=== PATIENT | female | born 1940 | race Caucasian/White ===

== ENCOUNTER 2016-05-19 13:35 | Emergency (ER) | payer OTHER ==
[~2016-05-19] VITALS: Ht 162.6 cm; Wt 60.3 kg
[2016-05-19 14:32] VITALS: BP 134/65
== END 2016-05-19 14:51 | disposition home or self-care (01) ==
LOC: ER 13:35
DX: E03.9 Hypothyroidism, unspecified (principal); Z76.0 Encounter for issue of repeat prescription

== ENCOUNTER 2017-08-11 13:29 | Emergency (ER) | payer OTHER ==
[~2017-08-11] VITALS: Ht 162.6 cm; Wt 72.6 kg
[2017-08-11 13:51] VITALS: BP 122/80
== END 2017-08-11 16:23 | disposition home or self-care (01) ==
LOC: EDBD 13:29 → ER 13:29
DX: S91.301A Unspecified open wound, right foot, initial encounter (principal); Z88.0 Allergy status to penicillin; X58.XXXA Exposure to other specified factors, initial encounter; Y93.89 Activity, other specified; Y99.8 Other external cause status; Y92.89 Other specified places as the place of occurrence of the external cause
CPT/HCPCS: 93005

== ENCOUNTER 2019-11-20 18:29 | Inpatient (IN) | payer OTHER ==
[~2019-11-20] VITALS: Ht 162.6 cm; Wt 71.2 kg
[~2019-11-20 18:29] MED LIST: LEVO88TA4 PO
[2019-11-20 20:08] LABS: Basophils # (auto) 0.1 10 ^3/uL (0-0.2); Basophils % (auto) 0.3 % (0.0-2.0); Eosinophils # (auto) 0 10 ^3/uL (0-0.8); Eosinophils % (auto) 0.1 % (0.0-7.0); Hematocrit 50.4 % (36.0-46.0); Hemoglobin 16.1 g/dL (12.2-16.2); Lymphocytes # (auto) 0.6 10 ^3/uL (0.4-5.4); Lymphocytes % (auto) 3.8 % (10.0-50.0); Mean Corpuscular Hemoglobin 27.3 pg (28.0-32.0); Mean Corpuscular Hgb Conc. 31.9 g/dL (32.0-36.0); Mean Corpuscular Volume 85.4 fL (80.0-100.0); Monocytes # (auto) 1.7 10 ^3/uL (0-1.3); Monocytes % (auto) 10.6 % (0.0-12.0); Neutrophils # (auto) 13.6 10 ^3/uL (1.6-8.6); Neutrophils % (auto) 85.2 % (37.0-80.0); Platelet Count (auto) 281 10^3/uL (140-450); Red Cell Distribution Width 16.1 % (11.8-14.3)
[2019-11-20 20:26] LABS: Albumin 3.5 g/dL (3.4-5.0); Anion Gap 8 (5-15); Blood Urea Nitrogen 37 mg/dL (7-18); Calcium 9.4 mg/dL (8.5-10.1); Carbon Dioxide 23 mmol/L (21-32); Chloride 112 mmol/L (98-107); Glucose 139 mg/dL (74-106); Potassium 3.8 mmol/L (3.5-5.1); Sodium 143 mmol/L (136-145)
[2019-11-20 20:31] LABS: Alanine Aminotransferase 27 U/L (13-56); Aspartate Aminotransferase 53 U/L (15-37); BUN/Creatinine Ratio 26.1; GFR African American 46 mL/min; GFR Non-African American 38 mL/min
[2019-11-20 20:45] LABS: Alkaline Phosphatase 103 U/L (45-117); Bilirubin, Total 0.5 mg/dL (0.2-1.0)
[2019-11-21] MEDS ORDERED: SODIUM CHLORIDE 0.9% 1,000 ML IV ONE (00:05)
[2019-11-21] MEDS ORDERED: SODIUM CHLORIDE 0.9% 500 ML IVB ONE (00:05)
[2019-11-21 01:18] LABS: INR 1.06 (0.9-1.15); Partial Thromboplastin Time 26.2 sec (23.0-31.2)
[2019-11-21] MEDS ORDERED: SODIUM CHLORIDE 0.9% 500 ML IV ONE (02:00)
[2019-11-21] MEDS: SODIUM CHLORIDE 0.9% 1,000 ML IV SCH ×4 (03:05→18:05)
[2019-11-21] MEDS ORDERED: HYDROcodone-ACET 5/325MG TAB PO PRN (03:15)
[2019-11-21] MEDS ORDERED: DEXTROSE (50%) 50ML SYRG IV PRN (03:15)
[2019-11-21] MEDS ORDERED: DOCUSATE SOD 100 MG CAP PO PRN (03:15)
[2019-11-21] MEDS ORDERED: ONDANSETRON HCL 4 MG/2 ML VIAL IV PRN (03:15)
[2019-11-21] MEDS ORDERED: ACETAMINOPHEN 325 MG TAB PO PRN (03:15)
[2019-11-21] MEDS: ACCU-CHEK COMFORT CURVE STRIP VI SCH ×4 (03:52→20:15)
[2019-11-21] MEDS ORDERED: dilTIAZem 25 MG/5 ML VIAL IV ONE ×2 (04:08→04:15)
[2019-11-21 04:14] LABS: Urine Bacteria MANY /hpf (None Seen); Urine Blood 2+ /uL (Negative); Urine Hyaline Cast MANY /lpf (0 - 2); Urine Mucus FEW (None Seen); Urine Specific Gravity 1.028 (1.001-1.035); Urine WBC 153 /hpf (0 - 5)
[2019-11-21] MEDS: InsuLIN REG 1unit/0.01ml Soln (100units/ml) SC SCH ×5 (04:17→20:15)
[2019-11-21 05:52] LABS: Basophils # (auto) 0 10 ^3/uL (0-0.2); Basophils % (auto) 0.3 % (0.0-2.0); Eosinophils # (auto) 0.5 10 ^3/uL (0-0.8); Eosinophils % (auto) 2.8 % (0.0-7.0); Hematocrit 40.4 % (36.0-46.0); Hemoglobin 13.1 g/dL (12.2-16.2); Lymphocytes # (auto) 1.4 10 ^3/uL (0.4-5.4); Lymphocytes % (auto) 8.3 % (10.0-50.0); Mean Corpuscular Hemoglobin 27.3 pg (28.0-32.0); Mean Corpuscular Hgb Conc. 32.4 g/dL (32.0-36.0); Mean Corpuscular Volume 84.5 fL (80.0-100.0); Monocytes % (auto) 11.6 % (0.0-12.0); Neutrophils # (auto) 13.1 10 ^3/uL (1.6-8.6); Platelet Count (auto) 240 10^3/uL (140-450); Red Blood Cells 4.78 10^6/uL (4.0-5.20); Red Cell Distribution Width 15.8 % (11.8-14.3)
[2019-11-21 06:16] LABS: Calcium 8.3 mg/dL (8.5-10.1); Potassium 3.3 mmol/L (3.5-5.1)
[2019-11-21] MEDS: cefTRIAXone 1GM/50ML D5W 50 ML IV SCH (11:27)
--- NOTE | 2019-11-21 13:07 | NUR ---
Medsurg admit from [facility] admitted to Telemetry unit after SBAR received. Patient oriented to NEAL HUGO RN primary RN, unit, room, bed, and unit policies regarding patient care and visiting hours. Patient is on room air, respirations even and unlabored. Patient denies pain at this time. Patient has Nathan catheter in place, patent and draining. Reviewed plan of care with patient, patient verbalized understanding. Bed in low and locked position, call light within reach. Will continue to monitor Q1 hour and PRN.
--- NOTE | 2019-11-21 16:53 | NUR ---
Attempted PT eval but pt declined stating she is too tired and would like to try in the morning. Will attempt again.
--- NOTE | 2019-11-21 19:05 | NUR ---
Closing Note Report given to lieutenant shift supervisor RN. No signs or symptoms of distress noted at this time.
--- NOTE | 2019-11-21 19:20 | NUR ---
RECEIVED PATIENT FROM DAY SHIFT RN. PATIENT RESTING IN BED. NO S/S OF DISTRESS NOTED. DENIED PAIN FOR NOW. NOWAK CATH IN PLACE DRAINING TO GRAVITY. REORIENTED PATIENT TO CURRENT SITUATION. REINFORCE NEEDED. POC INSTRUCTED AND ENCOURAGED PATIENT TO CALL FOR [employer] WORKER IF NEEDED. BED IN LOWEST POSITION WITH SIDE RAILS UP X 2. CALL ALDANA WITHIN REACH. ALARM ON. CONTINUE TO MONITOR FOR CHANGES Q1H AND PRN.
--- NOTE | 2019-11-21 20:20 | NUR ---
ACCU-CHECK, BS 83. NO COVERAGE. CONTINUE TO MONITOR.
--- NOTE | 2019-11-21 20:35 | NUR ---
REPOSITIONED PATIENT, INSTRUCTED PATIENT ON IMPORTANCE OF TURNING IN THE BED SINCE PATIENT A LITTLE SCARY TO TURNING HER. CONTINUE TO MONITOR.
--- NOTE | 2019-11-21 22:10 | NUR ---
REPOSITIONED PATIENT, PATIENT TOLERATED WELL. CONTINUE TO MONITOR.
--- NOTE | 2019-11-21 22:39 | NUR ---
CALLED BACK TO PATIENT'S SON COLUMBA ALVARADO, P[employer] VERIFIED. UPDATED ON PATIENT'S CURRENT SITUATION. COLUMBA REQUESTED MD TO CALL HIM BACK TO UPDATE IN THE MORNING AND REQUESTED TO HAVE NEUROLOGY CONSULT AND COVID TEST. WILL PASS IT TO DAY SHIFT RN. TO DAY SHIFT MD. CONTINUE TO MONITOR.
[2019-11-22] MEDS: ACCU-CHEK COMFORT CURVE STRIP VI SCH ×3 (00:15→08:27)
[2019-11-22] MEDS: SODIUM CHLORIDE 0.9% 1,000 ML IV SCH ×4 (00:15→14:05)
--- NOTE | 2019-11-22 00:16 | NUR ---
REPOSITIONED PATIENT. PATIENT TOLERATED WELL. ACCU-CHECK, BS 88. NO COVERAGE. CONTINUE TO MONITOR.
--- NOTE | 2019-11-22 02:15 | NUR ---
REPOSITIONED PATIENT, PATIENT TOLERATED WELL. CONTINUE TO MONITOR.
[2019-11-22] MEDS: InsuLIN REG 1unit/0.01ml Soln (100units/ml) SC SCH ×3 (04:00→08:00)
--- NOTE | 2019-11-22 04:06 | NUR ---
REPOSITIONED PATIENT. PATIENT TOLERATED WELL. ACCU-CHECK, BS 88. NO COVERAGE. CONTINUE TO MONITOR.
[2019-11-22 05:00] VITALS: BP 107/55
--- NOTE | 2019-11-22 06:33 | NUR ---
REPOSITIONED PATIENT, PATIENT TOLERATED WELL. CONTINUE TO MONITOR.
[2019-11-22 08:00] VITALS: BP 104/50
[2019-11-22 09:00] VITALS: BP 104/50
[2019-11-22] MEDS: cefTRIAXone 1GM/50ML D5W 50 ML IV SCH (09:27)
--- NOTE | 2019-11-22 11:20 | NUR ---
Dr Bernabe Carson bedside with patient discussing plan of care. Orders received and carried out.
[2019-11-22 11:52] LABS: Basophils # (auto) 0.1 10 ^3/uL (0-0.2); Basophils % (auto) 0.7 % (0.0-2.0); Eosinophils # (auto) 0.5 10 ^3/uL (0-0.8); Eosinophils % (auto) 4.7 % (0.0-7.0); Hematocrit 37.9 % (36.0-46.0); Hemoglobin 12.2 g/dL (12.2-16.2); Lymphocytes # (auto) 0.6 10 ^3/uL (0.4-5.4); Lymphocytes % (auto) 6.5 % (10.0-50.0); Mean Corpuscular Hemoglobin 27.4 pg (28.0-32.0); Mean Corpuscular Hgb Conc. 32.3 g/dL (32.0-36.0); Mean Corpuscular Volume 84.9 fL (80.0-100.0); Monocytes # (auto) 0.9 10 ^3/uL (0-1.3); Neutrophils # (auto) 7.9 10 ^3/uL (1.6-8.6); Neutrophils % (auto) 79.1 % (37.0-80.0); Platelet Count (auto) 183 10^3/uL (140-450); Red Blood Cells 4.47 10^6/uL (4.0-5.20); Red Cell Distribution Width 15.6 % (11.8-14.3)
[2019-11-22 12:09] LABS: Calcium 7.5 mg/dL (8.5-10.1); Magnesium 2.2 mg/dL (1.6-2.6); Potassium 3.4 mmol/L (3.5-5.1)
[2019-11-22] MEDS ORDERED: CEPH-37 PO (13:25)
[2019-11-22 15:00] VITALS: BP 106/38
--- NOTE | 2019-11-22 16:00 | NUR ---
[facility] Merle with [facility] called. Patients caregiver, Elizabeth, will be here at 1700 to pickup patient. I informed Merle that the patient is weak, and may need transportation arranged. Per Merle, Elizabeth said she is able to pickup and transport patient in the wheelchair.
--- NOTE | 2019-11-22 17:11 | NUR ---
Assessment Patient is an 79-year-old female. Assessment was completed with patient son Juan ). Per Juan prior to admission patient lived home alone. Per Juan patient caregiver is Mariel ) who helps patient 7 days per week. Per Juan patient will return home to her prior living arrangements post discharge and Mariel will transport patient home. Advised Juan there is a social service consult for hospice vs home health. Juan requested hospice for patient. Information and choice letter was given to Juan. Patient requested [facility]. Informed Juan clinical information will be faxed to [facility]. Informed Juan he has a right to participate in all discharge planning. Juan verbalized understanding discharge plan. Faxed clinical information to [facility]. Per Merle with [facility] patient has been accepted and they will start service upon discharge day. LEVI Tovar was informed. Addendum: 11/22/19 at 1713 by SURENDRA KOHLER Amended: Links added.
--- NOTE | 2019-11-22 17:31 | NUR ---
Discharge instructions given as ordered. Patient care will be followed by [facility]. All questions and concerns addressed. Patient verbalized understanding. Medication reconciliation form completed and copy given to patient. No home medications held in Pharmacy, and no needed vaccines given, patient declined. IV removed with catheter intact and pressure dressing applied, noble catheter remained in place per Merle, from [facility]. Hospice will determine if they want the catheter removed once patient is home. Patient taken to vehicle via wheelchair with all personal belongings, accompanied by 2 staff members. Patient caregiver, Elizabteh, transported patient home. No distress noted at time of departure.
== END 2019-11-22 17:30 | disposition hospice, home (50) | DRG 565 ==
LOC: ER 18:29 → EDBD 18:29 → OVERFLOW 18:30 → WEST WING 11-21 13:10
PROVIDERS: ADMIT Hospitalist; ATTEND Internal Medicine
DX: T79.6XXA Traumatic ischemia of muscle, initial encounter (principal); N39.0 Urinary tract infection, site not specified; N17.9 Acute kidney failure, unspecified; R64 Cachexia; E86.0 Dehydration; R73.9 Hyperglycemia, unspecified; W01.0XXA Fall on same level from slipping, tripping and stumbling without subsequent striking against object, initial encounter; E03.9 Hypothyroidism, unspecified; M47.816 Spondylosis without myelopathy or radiculopathy, lumbar region; Z60.2 Problems related to living alone; Z99.3 Dependence on wheelchair; Y93.89 Activity, other specified; Y92.89 Other specified places as the place of occurrence of the external cause; Y99.8 Other external cause status; Z88.0 Allergy status to penicillin; Z79.899 Other long term (current) drug therapy; Z68.27 Body mass index [BMI] 27.0-27.9, adult
CPT/HCPCS: 36415; 70450; 71045; 72125; 72192; 80048; 80053; 81001; 82550; 82962; 83036; 83735; 84484; 85025; 85610; 85730; 87086; 96361; 96365; 96372; 96375; G0378; J0696; J1815